=== PATIENT | female | born 1950 | race Caucasian/White ===

== ENCOUNTER 2021-02-14 13:22 | Emergency (ER) | payer OTHER ==
[~2021-02-14] VITALS: Ht 172.7 cm; Wt 104.3 kg
[2021-02-14] MEDS ORDERED: ZOFRAN ODT4 MG DISSOLVE ×2 (13:52→15:15)
[2021-02-14 15:05] LABS: ABSOLUTE LYMPHOCYTES 0.6 thou/uL (0.8-5.3); ABSOLUTE MONOCYTES 0.3 thou/uL (0.0-1.2); ABSOLUTE NEUTROPHILS 1.8 thou/uL (1.6-8.1); BASOPHILS 0.8 %; EOSINOPHILS 0.1 %; HEMATOCRIT 37.3 % (37.0-47.0); HEMOGLOBIN 12.8 gm/dL (12.0-15.0); MCHC 34.2 g/dL (28.0-37.0); MCV 87.6 fL (80.0-100.0); MONOCYTES 11.9 %; MPV 8.4 fl. (7.2-11.1); NUCLEATED RBCS 0 /100WBC; PLATELET COUNT* 147 thou/uL (150-400); POLYS 66.2 %; RBC 4.25 mil/uL (4.20-5.00); RDW-CV 13.3 % (10.5-14.5); WBC 2.7 thou/uL (4.0-11.0)
[2021-02-14] MEDS ORDERED: ZPAK PO (15:15)
[2021-02-14] MEDS ORDERED: DEXAMETHASONE 44 M1 PO (15:15)
[2021-02-14 15:17] LABS: CALCIUM 8.5 mg/dL (8.5-10.1); CREATININE 0.9 mg/dL (0.6-1.3); POTASSIUM 4.1 mmol/L (3.5-5.1)
[2021-02-14 15:22] LABS: ALBUMIN 3.9 g/dL (3.4-5.0); TOTAL BILIRUBIN 0.6 mg/dL (<0.1-1.0); TOTAL PROTEIN 7.2 g/dL (6.4-8.2)
[2021-02-14 16:15] VITALS: BP 125/70
== END 2021-02-14 16:15 | disposition home or self-care (01) ==
LOC: M.ERS 13:22
PROVIDERS: Family Medicine
DX: U07.1 COVID-19 (principal); R50.9 Fever, unspecified; R53.83 Other fatigue; R05 Cough; Z79.899 Other long term (current) drug therapy; Z88.8 Allergy status to other drugs, medicaments and biological substances

== ENCOUNTER 2021-02-17 18:56 | Inpatient (IN) | payer OTHER ==
[~2021-02-17] VITALS: Ht 172.7 cm; Wt 103.9 kg
--- NOTE | ~2021-02-17 | EMS ---
[facility] [address] [place] [address] EMS Patient Care Report Name: PEACE SCHUMACHER Room: [facility]#: [id number] Admission: 02/17/21 Attend Phys: Discharge: Date of : 46 Report #: [id number] THIS REPORT FOR: //name// Report Transmitted: 02/17/2021 20:03 EMS Care Summary [facility] [place] Incident [id number] @ 02/17/2021 18:08 Incident Location [address] [place] [address] Patient Peace Randolph Female, 70 Years 1950 Patient Address [address] [place] [address] Patient History Novel Coronavirus (COVID-19),Other, Patient Allergies , Patient Medications Dexamethasone, Ondansetron, Aspirin, Chief Complaint Nausea Disposition Transported No Lights/[place] [facility] Reason Sick Person Transported To [facility] Narrative [facility] [address] responded to a residence for a covid positive patient. Arrived on scene and made patient contact at the front door of the home. The patient was able to walk outside without difficulties and sit on the cot. She states that she tested positive for covid on 02/03. She states she has not been able to break a [facility] [address] [place] [address] EMS Patient Care Report Name: PEACE SCHUMACHER Room: [facility]#: [id number] Admission: 02/17/21 Attend Phys: Discharge: Date of : 46 Report #: [id number] fever for a couple days and has been nauseous. She requested transport to [facility]. She was secured with the safety straps and moved to the ambulance on the cot. Once in the ambulance, she was placed on oxygen and given a surgical mask to wear. 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 Her temperature was checked. Transport was started to [facility]. An IV was attempted twice without success. Her blood glucose level was checked. Patient assessment and exam was completed en route. She states she was seen at the hospital 3 days ago and her symptoms have not improved. She was transported without incident. Vitals and patient condition were monitored for any changes. patient signature was obtained. UPon arrival to the hospital, she was moved inside on the cot. She was taken to triage per nurses request. the patient was assisted from the cot to a wheel chair. Patient information was given to the nurse. signature was obtained from the nurse. patient care was transferred. returned to service. Initial Vitals @18:14SpO2: 93, @18:32 @18:15Temp: 98.06F, @18:29P: 88,R: 18,BP: 148/78, @18:50P: 90,R: 18,BP: 152/78, @18:29GCS: 15, @18:50GCS: 15, @18:31Glucose: 96, Assessments @18:14MENTAL:SKIN:HEENT:LUNG SOUNDS:ABDOMEN:PELVIS//GI:EXTREMITIES:PULSE:NEURO: Impression COVID-19 - Confirmed by testing Procedures @18:17Oxygen Complications: ,Response: Improved@18:32 cc () Site: Forearm-LeftResponse: UnchangedFailed@18:32 cc () Site: Forearm-LeftResponse: UnchangedFailed@18:323-Lead ECGResponse: UnchangedSucceeded Timeline 17:58,Call Received 17:58,Dispatch Notified 17:58,Psap Call 18:08,Dispatched 18:08,En Route 18:14,On Scene 18:14,At Patient 18:14,BP: / M,PULSE: ,RR: R,SPO2: 93 Ox,ETCO2: ,BG: ,PAIN: ,GCS: , 18:15,BP: / M,PULSE: ,RR: R,SPO2: Ox,ETCO2: ,BG: ,PAIN: ,GCS: , [place] [address] EMS Patient Care Report Name: CALVIN SCHUMACHERLATONIA Saini Room: [facility]#: [id number] Admission: 02/17/21 Attend Phys: Discharge: Date of : 46 Report #: [id number] 18:17,Oxygen Complications: ,,Response: Improved 18:29,BP: 148/78 M,PULSE: 88,RR: 18 R,SPO2: Ox,ETCO2: ,BG: ,PAIN: ,GCS: , 18:29,BP: / M,PULSE: ,RR: R,SPO2: Ox,ETCO2: ,BG: ,PAIN: ,GCS: 15, 18:31,BP: / M,PULSE: ,RR: R,SPO2: Ox,ETCO2: ,B,PAIN: ,GCS: , 18:32,Depart Scene 18:32, cc Site: Forearm-Left,Response: UnchangedFailed, 18:32, cc Site: Forearm-Left,Response: UnchangedFailed, 18:32,3-Lead ECG,Response: UnchangedSucceeded, 18:32,BP: / M,PULSE: ,RR: R,SPO2: Ox,ETCO2: ,BG: ,PAIN: ,GCS: , 18:50,BP: 152/78 M,PULSE: 90,RR: 18 R,SPO2: Ox,ETCO2: ,BG: ,PAIN: ,GCS: , 18:50,BP: / M,PULSE: ,RR: R,SPO2: Ox,ETCO2: ,BG: ,PAIN: ,GCS: 15, 18:53,At Destination 19:06,Call Closed Disclaimer v1.1 Copyright 2020 [employer] This EMS Care Summary contains data elements from the applicable legal record (which may be displayed differently). It is designed to provide pertinent information for the following purposes: continuity of care, clinical quality, and state data reporting. The complete legal record is available to ED staff and administrators of the receiving hospital in [employer]'s Patient Tracker. All data is provided "as is."
[~2021-02-17 18:56] MED LIST: DEXAMETHASONE 44 M1 PO; ZOFRAN ODT4 MG DISSOLVE; ZPAK PO
[2021-02-17 19:07] VITALS: BP 142/73
[2021-02-17 22:12] LABS: HEMATOCRIT 36.2 % (37.0-47.0); HEMOGLOBIN 12.3 gm/dL (12.0-15.0); MCH 29.7 pg (26.0-34.0); MCV 87.3 fL (80.0-100.0); MPV 7.8 fl. (7.2-11.1); NUCLEATED RBCS 0 /100WBC; PLATELET COUNT* 181 thou/uL (150-400); RBC 4.14 mil/uL (4.20-5.00); RDW-CV 13.2 % (10.5-14.5)
[2021-02-17 22:17] LABS: CALCIUM 8.3 mg/dL (8.5-10.1); CREATININE 0.7 mg/dL (0.6-1.3); POTASSIUM 3.7 mmol/L (3.5-5.1)
[2021-02-17 22:27] LABS: ALBUMIN 3.4 g/dL (3.4-5.0); MAGNESIUM 1.8 mg/dL (1.8-2.4); TOTAL BILIRUBIN 0.8 mg/dL (<0.1-1.0); TOTAL PROTEIN 7.1 g/dL (6.4-8.2)
[2021-02-17 22:54] LABS: ABSOLUTE LYMPHOCYTES 0.7 thou/uL (0.8-5.3); ABSOLUTE MONOCYTES 0.2 thou/uL (0.0-1.2); ABSOLUTE NEUTROPHILS 5.1 thou/uL (1.6-8.1)
[2021-02-17 22:55] LABS: PLATELET ESTIMATE ADEQUATE
[2021-02-18 05:15] VITALS: BP 137/75
[2021-02-18 06:36] LABS: URINE BILIRUBIN NEGATIVE (Negative); URINE BLOOD NEGATIVE (Negative); URINE CLARITY CLEAR; URINE COLOR YELLOW; URINE GLUCOSE-RANDOM NEGATIVE (Negative); URINE KETONES TRACE (Negative); URINE LEUKOCYTES-REFLEX NEGATIVE (Negative); URINE NITRITE-REFLEX NEGATIVE (Negative); URINE PROTEIN NEGATIVE (Negative); URINE SPECIFIC GRAVITY <= 1.005 (1.005-1.030); URINE UROBILINOGEN 0.2 E.U./dl (0.2-1.0)
[2021-02-18 09:15] VITALS: BP 129/68
--- NOTE | 2021-02-18 10:12 | EKG ---
[place] [address] ELECTROCARDIOGRAM REPORT Name: PEACE SCHUMACHER Room: [place] [address] ADM [place] [facility]#: [id number] Admission: 02/18/21 Attend Phys: Megan Fleming, Discharge: Date of : 46 Date of Service: 02/17/212030 Report #: [id number] THIS REPORT FOR: //name// [facility] ED Test Date: 2021-02-17 Test Time: 20:31:21 Pat Name: PEACE KWON Department: Room: [facility] Gender: F Medical Front Desk Coordinator: [place] : 1950 Requested By: Bouchra Morse Order Number: [id number] MD: Luis E Bourgeois Measurements Intervals [place] Rate: 101 P: 27 MD: 130 QRS: 24 QRSD: 80 T: 0 QT: 334 QTc: 433 Interpretive Statements Sinus tachycardia No previous ECG available for comparison Electronically Signed On 02-18-2021 10:12:44 CDT by Luis E Bourgeois [email or web address] <ELECTRONICALLY SIGNED> By: Luis E Bourgeois MD, [facility] 02/18/21 1012 30 30 Luis E Bourgeois MD, [facility] /EPI
[2021-02-18 10:13] LABS: ABSOLUTE LYMPHOCYTES 0.4 thou/uL (0.8-5.3); ABSOLUTE MONOCYTES 0.2 thou/uL (0.0-1.2); BASOPHILS 0.3 %; HEMATOCRIT 37.3 % (37.0-47.0); HEMOGLOBIN 12.3 gm/dL (12.0-15.0); LYMPHOCYTES 8.3 %; MCH 29.6 pg (26.0-34.0); MCHC 32.9 g/dL (28.0-37.0); MONOCYTES 4.4 %; MPV 8.3 fl. (7.2-11.1); NUCLEATED RBCS 0 /100WBC; PLATELET COUNT* 188 thou/uL (150-400); RBC 4.15 mil/uL (4.20-5.00); RDW-CV 13.5 % (10.5-14.5); WBC 4.6 thou/uL (4.0-11.0)
[2021-02-18 10:22] LABS: ALBUMIN 3.1 g/dL (3.4-5.0); CALCIUM 8.3 mg/dL (8.5-10.1); CREATININE 0.7 mg/dL (0.6-1.3); POTASSIUM 4.1 mmol/L (3.5-5.1); TOTAL BILIRUBIN 0.6 mg/dL (<0.1-1.0); TOTAL PROTEIN 6.8 g/dL (6.4-8.2)
[2021-02-18 11:27] VITALS: BP 129/68
[2021-02-18 12:00] VITALS: BP 113/71
[2021-02-18 16:00] VITALS: BP 129/62
[2021-02-19] VITALS: BP 123/54
[2021-02-19 03:33] VITALS: BP 137/57
[2021-02-19 06:14] LABS: ABSOLUTE LYMPHOCYTES 0.5 thou/uL (0.8-5.3); ABSOLUTE MONOCYTES 0.6 thou/uL (0.0-1.2); ABSOLUTE NEUTROPHILS 5.6 thou/uL (1.6-8.1); HEMATOCRIT 33.9 % (37.0-47.0); HEMOGLOBIN 11.6 gm/dL (12.0-15.0); LYMPHOCYTES 8.1 %; MCH 29.8 pg (26.0-34.0); MCHC 34.2 g/dL (28.0-37.0); MCV 87.1 fL (80.0-100.0); MONOCYTES 8.9 %; MPV 8.1 fl. (7.2-11.1); NUCLEATED RBCS 0 /100WBC; PLATELET COUNT* 215 thou/uL (150-400); RBC 3.89 mil/uL (4.20-5.00); RDW-CV 13.3 % (10.5-14.5); WBC 6.7 thou/uL (4.0-11.0)
[2021-02-19 06:18] LABS: CALCIUM 8.1 mg/dL (8.5-10.1); CREATININE 0.7 mg/dL (0.6-1.3); POTASSIUM 3.6 mmol/L (3.5-5.1)
[2021-02-19 08:00] VITALS: BP 141/84
--- NOTE | 2021-02-19 11:28 | NUR ---
The patient is alert.Able to make needs known. SR on the monitor. UP ad joe to [facility]. Call light within reach.
[2021-02-19 12:00] VITALS: BP 138/77
[2021-02-19 12:03] VITALS: BP 141/84
--- NOTE | 2021-02-19 15:27 | NUR ---
Pt discharging to home today, will need home o2. CM to fax referral to [facility]. Pt independent and home with .
[2021-02-19] MEDS ORDERED: AZITHROMYCIN500 MG PO (16:15)
--- NOTE | 2021-02-19 17:38 | NUR ---
Discharge instructions given to the patient. No questions voiced. Belongings removed by the patient. The patient was wheeled to the car.
== END 2021-02-19 17:00 | disposition home or self-care (01) | DRG 177 ==
LOC: M.ERS 18:56 → M.ORTHSURG 02-18 01:15 → M.TBA-ER 02-18 01:15 → M.ORTHSURG 02-18 09:13
PROVIDERS: Emergency Medicine; Internal Medicine; ADMIT Internal Medicine; ATTEND Internal Medicine
PROC: XW033E5 Introduction of Remdesivir Anti-infective into Peripheral Vein, Percutaneous Approach, New Technology Group 5 (ICD-10-PCS; principal; 2021-02-18)
PROC: 5A0935A Assistance with Respiratory Ventilation, Less than 24 Consecutive Hours, High Flow/Velocity Cannula (ICD-10-PCS; 2021-02-19)
DX: U07.1 COVID-19 (principal); J96.01 Acute respiratory failure with hypoxia; J12.82 Pneumonia due to coronavirus disease 2019; E87.1 Hypo-osmolality and hyponatremia; Z88.8 Allergy status to other drugs, medicaments and biological substances; Z79.899 Other long term (current) drug therapy